=== PATIENT | male | born 1985 | race Two or more races ===

== ENCOUNTER 2019-10-30 11:54 | Outpatient (CLI) | payer OTHER | END 2019-10-30 11:59 | disposition home or self-care (01) | LOC: LAB 11:54 → EDBD 11:54 → LAB 11:59 | PROVIDERS: ATTEND Surgery | DX: Z20.828 Contact with and (suspected) exposure to other viral communicable diseases (principal) ==

== ENCOUNTER → 2022-08-10 | Day surgery (SDC) | payer OTHER ==
[~2022-08-10] MED LIST: PEPCID20 MG PO
== END | disposition home or self-care (01) ==
LOC: ADM 08-07 14:00 → AMB-ENDOS 05:45 → CIR.AMB 14:00
PROVIDERS: ATTEND Surgery
DX: K44.9 Diaphragmatic hernia without obstruction or gangrene (principal); K29.60 Other gastritis without bleeding; R10.13 Epigastric pain; E66.09 Other obesity due to excess calories; Z20.822 Contact with and (suspected) exposure to COVID-19